=== PATIENT | female | born 1980 | race Caucasian/White ===

== ENCOUNTER 2017-10-12 01:51 | Emergency (ER) | payer SELFPAY ==
[2017-10-12] MEDS ORDERED: Ketorolac Tromethamine 30 MG/ML VIAL ONE (02:29)
[2017-10-12] MEDS ORDERED: Cyclobenzaprine 10 MG TAB ONE (02:29)
--- NOTE | 2017-10-12 08:01 | RAD ---
RIGHT SHOULDER THREE VIEWS: History: Right shoulder pain. FINDINGS/IMPRESSION: No fracture, dislocation, or bony destruction is identified. POS: SKIP
== END 2017-10-12 03:47 | disposition home or self-care (01) ==
LOC: ERS 01:51
DX: S46.911A Strain of unspecified muscle, fascia and tendon at shoulder and upper arm level, right arm, initial encounter (principal); F41.9 Anxiety disorder, unspecified; F17.210 Nicotine dependence, cigarettes, uncomplicated; Z71.6 Tobacco abuse counseling; X50.0XXA Overexertion from strenuous movement or load, initial encounter
CPT/HCPCS: 96372; 99406; J1885